=== PATIENT | female | born 1985 | race Caucasian/White ===

== ENCOUNTER 2019-01-06 18:20 | Emergency (ER) | payer OTHER ==
[2019-01-06 18:27] VITALS: BP 102/72; PULSE 65; TEMP 98.6; BMI 30.4
--- NOTE | 2019-01-06 18:27 | PDOC ---
Rapid Medical Evaluation Time Seen by Provider: 01/06/19 18:25 Medical Evaluation: Allergies Allergy/AdvReac Type Severity Reaction Status Date / Time No Known Allergies Allergy Verified 09/01/17 21:35 01/06/19 18:25 I have performed a brief in-person evaluation of this patient. The patient presents with a chief complaint of: congestion- worsens with sitting forward Pertinent physical exam findings: OP with cobblestoning. No cervical lymphadenopathy. I have ordered the following: UPT The patient will proceed to the ED for further evaluation. Discharge Disposition - Diagnosis Congestion of paranasal sinus - Referrals - Patient Instructions - Post Discharge Activity
--- NOTE | 2019-01-06 19:20 | PDOC ---
History of Present Illness - General Chief Complaint: Headache Stated Complaint: HEAD PRESSURE Time Seen by Provider: 01/06/19 18:25 - History of Present Illness Initial Comments: 01/06/19 19:17 33-year-old female without comorbidities presents for evaluation of facial pressure without systemic symptoms, she does have an associated headache times one day. Past History - Past Medical History Allergies/Adverse Reactions: Allergies Allergy/AdvReac Type Severity Reaction Status Date / Time No Known Allergies Allergy Verified 01/06/19 18:27 Home Medications: Ambulatory Orders Amox-Tr/K Cl [Augmentin - 875Mg Tablet] 1 tab PO BID #20 tablet 01/06/19 Budesonide [Rhinocort Allergy] 1 spray NS ONCE #1 spray.pump 01/06/19 Asthma: Yes COPD: No - Immunization History Td Vaccination: Yes Immunization Up to Date: Yes - Suicide/Smoking/Psychosocial Hx Smoking Status: No Smoking History: Never smoked Years of Tobacco Use: 0 Have you smoked in the past 12 months: No Number of Cigarettes Smoked Daily: 2 Cigars Per Day: 0 Information on smoking cessation initiated: No 'Breaking Loose' booklet given: 10/24/15 Hx Alcohol Use: No Drug/Substance Use Hx: No Substance Use Type: None Review of Systems - Review of Systems Constitutional: Yes: Chills, Malaise. No: Fever HEENTM: Yes: Nose Congestion Neurological: Yes: Headache *Physical Exam - Vital Signs Last Vital Signs Temp Pulse Resp BP Pulse Ox 98.6 F 65 17 102/72 98 01/06/19 18:26 01/06/19 18:26 01/06/19 18:26 01/06/19 18:26 01/06/19 18:26 - Physical Exam Comments: 01/06/19 19:17 HEAD: NC/AT tender frontal sinuses EYES: Conjuntiva clear Ears: Canals and TM's normal NOSE: No d/c injected turbinates THROAT: Moist mucous membrances, oral pharanx clear, uvula midline NECK: Supple without adenopathy CARDIAC: S1 S2 LUNGS: CTA Full and Equal breath sounds ABDOMEN: Soft NT ND MS: Full ROM in all joints without edema NEUROLOGIC: No gross sensory or motor deficits, NVID SKIN: Normal color and temperature no lesions or rashes Medical Decision Making - Medical Decision Making 01/06/19 19:17 We'll treat for bacterial sinusitis based on examination *DC/Admit/Observation/Transfer Diagnosis at time of Disposition: Congestion of paranasal sinus, Sinusitis - Discharge Dispostion Disposition: HOME Condition at time of disposition: Stable Decision to Admit order: No - Prescriptions Prescriptions: Amox-Tr/K Cl [Augmentin - 875Mg Tablet] 1 tab PO BID #20 tablet Budesonide [Rhinocort Allergy] 1 spray NS ONCE #1 spray.pump - Referrals Referrals: Ramírez Tinajero MD [Primary Care Provider] - Eric Phan MD [Staff Physician] - - Patient Instructions Printed Discharge Instructions: Sinusitis, DI for Sinusitis Additional Instructions: Return to the emergency room for worsening symptoms. Please follow-up with ear nose and throat doctor in 1-2 days for further evaluation and treatment options. Please take the antibiotics as directed and finish the entire 10 day course and use the nasal spray as directed. Follow-up with ENT in one to 2 days for further evaluation and treatment options. - Post Discharge Activity
== END 2019-01-06 19:30 | disposition home or self-care (01) ==
LOC: JERFT 18:20
DX: J01.90 Acute sinusitis, unspecified (principal)
CPT/HCPCS: 99281-25